=== PATIENT | male | born 1990 | race Caucasian/White ===

== ENCOUNTER → 2017-07-25 | Outpatient (CLI) | payer BC | LOC: BHSO 15:32 | DX: F41.1 Generalized anxiety disorder (principal) ==

== ENCOUNTER → 2017-09-24 | Outpatient (CLI) | payer BC | LOC: BHSO 15:38 | DX: F41.1 Generalized anxiety disorder (principal) | CPT/HCPCS: G0463 ==

== ENCOUNTER → 2017-12-18 | Outpatient (CLI) | payer BC | LOC: BHSO 16:13 | DX: F41.1 Generalized anxiety disorder (principal) | CPT/HCPCS: G0463 ==

== ENCOUNTER → 2018-06-18 | Outpatient (CLI) | payer BC | LOC: BHSO 16:00 | DX: F41.1 Generalized anxiety disorder (principal) | CPT/HCPCS: G0463 ==

== ENCOUNTER → 2018-12-19 | Outpatient (CLI) | payer BC | LOC: BHSO 15:52 | DX: F41.1 Generalized anxiety disorder (principal) | CPT/HCPCS: G0463 ==

== ENCOUNTER → 2019-03-20 | Outpatient (CLI) | payer BC | LOC: BHSO 15:58 | DX: F33.42 Major depressive disorder, recurrent, in full remission (principal) | CPT/HCPCS: G0463 ==

== ENCOUNTER → 2019-09-18 | Outpatient (CLI) | payer BC | LOC: BHSO 16:13 | DX: F33.42 Major depressive disorder, recurrent, in full remission (principal) | CPT/HCPCS: G0463 ==